=== PATIENT | male | born 1955 | race Caucasian/White ===

== ENCOUNTER 2023-04-09 08:36 | Outpatient (OUT) | payer MEDICARE, SELFPAY ==
--- NOTE | 2023-04-09 08:50 | CT_ITS ---
[address] [address] Patient Name: HANNAH BERGERON MRN: [id number] date: 1955 Sex: M Assigned Patient Location: CT Current Patient Location: Accession/Order Number: [id number] Exam Date: 04/09/2023 08:53 Report Date: 04/10/2023 01:27 At the request of: JESSICA CORDERO Procedure: CT lung screening low-dose EXAMINATION: CT lung screening low-dose HISTORY: Nicotine Dependence F17.210 COMPARISON: No relevant comparison available. TECHNIQUE: Axial, Coronal, and Sagittal images were created without the administration of IV contrast material. Dose reduction techniques were achieved by using automated exposure control and/or adjustment of mA and/or kV according to patient size and/or use of iterative reconstruction technique. FINDINGS: LUNGS: Mild emphysematous changes. No suspicious nodules or acute infiltrates. PLEURA: No mass, effusion, or pneumothorax. VASCULATURE: No abnormality. SANDRA: No mass or pathologic adenopathy. MEDIASTINUM: No mass or pathologic adenopathy. CARDIAC: No enlargement, pericardial thickening, or significant calcification. AORTA: No aneurysm or dissection. CHEST WALL: No mass or axillary adenopathy BONES: No bone lesion or fracture. LIMITED ABDOMEN: No suspicious findings. Limited images of the upper abdomen. OTHER: Negative. CT/CT lung screening low-dose IMPRESSION: 1. Lung-RADS Category 1 Negative. No nodules and definitely benign nodules. Continue annual screening with LDCT in 12 months. 2. Mild emphysematous changes. Electronically authenticated by: INESSA MADISON Date: 04/10/2023 01:27
== END 2023-04-09 08:37 | disposition home or self-care (01) ==
LOC: CT 08:41
PROVIDERS: PCP Internal Medicine; Visit Provider Internal Medicine
DX: F17.210 Nicotine dependence, cigarettes, uncomplicated (principal)
CPT/HCPCS: 71271

== ENCOUNTER 2024-10-09 09:09 | Outpatient (OUT) | payer MEDICARE, SELFPAY ==
--- NOTE | 2024-10-09 09:16 | CT_ITS ---
The [address] [address] Patient Name: HANNAH BERGERON MRN: [id number] date: 1955 Sex: M Assigned Patient Location: CT Current Patient Location: CT Accession/Order Number: [id number] Exam Date: 10/09/2024 09:56 Report Date: 10/09/2024 10:08 At the request of: JESSICA CORDERO Procedure: CT lung screening low-dose LOW-DOSE SCREENING CHEST CT WITHOUT CONTRAST COMPARISON: 04/10/2023 CLINICAL DATA: Former smoker Spiral axial unenhanced low-dose images were obtained through the chest. Images were reviewed using both narrow and wide window settings. This CT exam was performed using one or more following dose reduction techniques: Automated exposure control, adjustment of the mA and/or kV according to patient size, or use of iterative reconstruction technique. The heart is within normal limits for size. No pericardial effusion is present. Coronary disease is seen. There is atherosclerotic plaque at the aorta and proximal great vessels. No aneurysm is identified. Small mediastinal and axillary lymph nodes are again visualized. There is minor gynecomastia. There is mild degenerative change at the thoracic spine. There is a lower cervical fusion plate. There is minor scarring and/or atelectasis. Airspace lucencies are visualized compatible with obstructive lung disease. No consolidation, pleural effusion or pneumothorax is seen. Similar tiny nodular densities are again seen at the upper lungs measuring up to 4 mm at the left apex. No new nodularity is seen. Limited imaging through the upper abdomen shows no contributory findings. CT/CT lung screening low-dose IMPRESSION: TINY STABLE PULMONARY NODULES. OBSTRUCTIVE LUNG DISEASE. Lung RADS category 2 Low-dose CT follow-up recommended in one year. Impression dictated by: Lena Reed M.D.10/09/2024 10:08 AM Dictation Location: [place] [address] Electronically authenticated by: [id number] Y Date: 10/09/2024 10:08
--- NOTE | 2024-10-09 09:35 | US_ITS ---
The [address] [address] Patient Name: HANNAH BERGERON MRN: [id number] date: 1955 Sex: M Assigned Patient Location: CT Current Patient Location: CT Accession/Order Number: [id number] Exam Date: 10/09/2024 10:34 Report Date: 10/09/2024 10:37 At the request of: JESSICA CORDERO Procedure: US aorta ULTRASOUND OF THE ABDOMINAL AORTA COMPARISON: None CLINICAL DATA: History of tobacco use. Real-time ultrasound evaluation of the abdominal aorta was performed. Evaluation is slightly limited by large body habitus. No aortic aneurysm is seen. Proximally, the aorta measures 2.8 x 2.3 cm. Through the midsegment, the aorta measures 2.1 x 1.9 cm . Distally, the aorta measures 1.9 x 1.8 cm in dimension. The bifurcation is visualized and the iliac arteries are normal caliber. There is no periaortic fluid. US/US aorta IMPRESSION: NO AORTIC ANEURYSM. Impression dictated by: Lena Reed M.D.10/09/2024 10:37 AM Dictation Location: [place] [address] Electronically authenticated by: [id number] Y Date: 10/09/2024 10:37
== END 2024-10-09 09:10 | disposition home or self-care (01) ==
LOC: CT 09:11
PROVIDERS: PCP Internal Medicine; Visit Provider Internal Medicine
DX: R91.8 Other nonspecific abnormal finding of lung field (principal); F17.210 Nicotine dependence, cigarettes, uncomplicated; Z13.6 Encounter for screening for cardiovascular disorders; J44.9 Chronic obstructive pulmonary disease, unspecified
CPT/HCPCS: 71271; 76706